=== PATIENT | male | born 1985 | race Caucasian/White ===

== ENCOUNTER 2021-04-18 13:51 | Emergency (ER) | payer OTHER ==
[~2021-04-18] VITALS: Ht 182.9 cm; Wt 79.8 kg
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
[2021-04-18] MEDS ORDERED: LIDOCAINE 1%-EPI 1:100,000 20 ML VIAL ONE (14:47)
[2021-04-18] MEDS ORDERED: TDAP [DIPH/PERTUSSIS/TET] 0.5 ML VIAL IM ONE ×2 (15:00→15:05)
[2021-04-18] MEDS ORDERED: LIDOCAINE 0.5%-EPI 1:200,000 50 ML VIAL TP ONE (15:00)
[2021-04-18 15:20] VITALS: BP 124/80
[2021-04-18] MEDS ORDERED: BACITRACIN ZINC OINT PACKET 1 EA PACKET TP ONE (15:30)
== END 2021-04-18 15:21 | disposition home or self-care (01) ==
LOC: ER 13:55
DX: S01.01XA Laceration without foreign body of scalp, initial encounter (principal); S06.0X0A Concussion without loss of consciousness, initial encounter; Z98.890 Other specified postprocedural states; Z88.6 Allergy status to analgesic agent; W18.39XA Other fall on same level, initial encounter; Y93.89 Activity, other specified; Y92.89 Other specified places as the place of occurrence of the external cause; Y99.8 Other external cause status
CPT/HCPCS: 12004; 99282; J3490; 90715

== ENCOUNTER 2021-04-22 19:21 | Emergency (ER) | payer OTHER | END 2021-04-22 19:48 | disposition home or self-care (01) | LOC: ER 19:33 | DX: S01.01XD Laceration without foreign body of scalp, subsequent encounter (principal); Z98.890 Other specified postprocedural states; Z88.6 Allergy status to analgesic agent; X58.XXXD Exposure to other specified factors, subsequent encounter ==

== ENCOUNTER 2021-04-23 23:51 | Emergency (ER) | payer OTHER ==
[~2021-04-23] VITALS: Ht 182.9 cm; Wt 72.6 kg
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
[2021-04-24] MEDS ORDERED: IBUPROFEN 600 MG TABLET ONE (00:23)
--- NOTE | 2021-04-24 00:24 | NUR ---
XRAY AT BEDSIDE
[2021-04-24] MEDS ORDERED: IBUPROFEN 600 MG TABLET PO ONE (00:30)
[2021-04-24] MEDS ORDERED: IBUP-1957 PO (00:54)
[2021-04-24] MEDS ORDERED: DEXTROSE 50%-WATER 50 ML DISP.SYRIN ONE (01:59)
[2021-04-24 06:07] VITALS: BP 128/64
== END 2021-04-24 01:30 | disposition home or self-care (01) ==
LOC: ER 23:54
DX: S62.111A Displaced fracture of triquetrum [cuneiform] bone, right wrist, initial encounter for closed fracture (principal); Z98.890 Other specified postprocedural states; Z88.6 Allergy status to analgesic agent; Z60.2 Problems related to living alone; V00.131A Fall from skateboard, initial encounter; Y93.51 Activity, roller skating (inline) and skateboarding; Y92.331 Roller skating rink as the place of occurrence of the external cause; Y99.8 Other external cause status
CPT/HCPCS: 73110; 73130-TC

== ENCOUNTER 2021-05-03 16:37 | Emergency (ER) | payer OTHER ==
[~2021-05-03] VITALS: Ht 175.3 cm; Wt 99.8 kg
[~2021-05-03 16:37] MED LIST: IBUP-1957 PO
[2021-05-03 16:49] VITALS: BP 126/70
== END 2021-05-03 17:38 | disposition home or self-care (01) ==
LOC: ER 16:43
DX: S01.01XD Laceration without foreign body of scalp, subsequent encounter (principal); F10.10 Alcohol abuse, uncomplicated; Y90.9 Presence of alcohol in blood, level not specified; Z98.890 Other specified postprocedural states; Z88.6 Allergy status to analgesic agent; Z88.5 Allergy status to narcotic agent; Z88.8 Allergy status to other drugs, medicaments and biological substances; Z60.2 Problems related to living alone; Z79.899 Other long term (current) drug therapy; W18.09XD Striking against other object with subsequent fall, subsequent encounter

== ENCOUNTER 2021-07-10 04:28 | Emergency (ER) | payer OTHER ==
[~2021-07-10] VITALS: Ht 182.9 cm; Wt 81.6 kg
[2021-07-10 04:33] VITALS: BP 132/82
[2021-07-10] MEDS ORDERED: IBUPROFEN 600 MG TABLET PO ONE (05:00)
[2021-07-10] MEDS ORDERED: IBUPROFEN 600 MG TABLET ONE (05:03)
[2021-07-10] MEDS ORDERED: IBUP-1957 PO (05:20)
== END 2021-07-10 05:35 | disposition home or self-care (01) ==
LOC: ER 04:31
DX: S62.616A Displaced fracture of proximal phalanx of right little finger, initial encounter for closed fracture (principal); Z98.890 Other specified postprocedural states; Z88.6 Allergy status to analgesic agent; Z88.8 Allergy status to other drugs, medicaments and biological substances; Z60.2 Problems related to living alone; W05.1XXA Fall from non-moving nonmotorized scooter, initial encounter; Y93.55 Activity, bike riding; Y92.89 Other specified places as the place of occurrence of the external cause; Y99.8 Other external cause status
CPT/HCPCS: 73130-TC